=== PATIENT | male | born 1985 | race Caucasian/White ===

== ENCOUNTER → 2021-04-23 | Outpatient (CLI) | payer BC ==
[2021-04-23 11:44] LABS: HEMOGLOBIN 15.9 gm/dl (14.0-17.5); RED BLOOD COUNT 5.41 M/UL (4.20-5.50); WHITE BLOOD COUNT 7.2 K/UL (4.5-11.0)
[2021-04-24 08:15] LABS: A/G RATIO 1.5 (1.2-2.2); ALKALINE PHOSPHATASE, S 124 IU/L (44-121); ALT (SGPT) 54 IU/L (0-44); AST (SGOT) 24 IU/L (0-40); BILIRUBIN, TOTAL 0.3 mg/dL (0.0-1.2); BUN 13 mg/dL (6-20); BUN/CREATININE RATIO 18 (9-20); C-REACTIVE PROTEIN, QUANT <1 mg/L (0-10); CALCIUM, SERUM 9.5 mg/dL (8.7-10.2); CARBON DIOXIDE, TOTAL 22 mmol/L (20-29); CHLORIDE, SERUM 103 mmol/L (96-106); CREATININE, SERUM 0.72 mg/dL (0.76-1.27); EGFR IF AFRICN AM 139 (>59); EGFR IF NONAFRICN AM 120 (>59); GLOBULIN, TOTAL 3.1 g/dL (1.5-4.5); GLUCOSE, SERUM 95 mg/dL (65-99); POTASSIUM, SERUM 4.1 mmol/L (3.5-5.2); PROTEIN, TOTAL, SERUM 7.6 g/dL (6.0-8.5); SODIUM, SERUM 139 mmol/L (134-144)
[2021-04-25 12:16] LABS: E. CHAFFEENSIS (HME) IGG TITER Negative (Neg:<1:64); E. CHAFFEENSIS (HME) IGM TITER Negative (Neg:<1:20)
== END ==
LOC: LAB 10:36
PROVIDERS: Family Medicine
DX: M54.42 Lumbago with sciatica, left side (principal); M54.41 Lumbago with sciatica, right side; G89.29 Other chronic pain; M25.561 Pain in right knee
CPT/HCPCS: 36415; 80053; 82607; 84443; 84550; 85025; 85652; 86140; 86618; 86666; 86757

== ENCOUNTER → 2021-04-23 | Outpatient (CLI) | payer BC | LOC: EMI 04-13 16:00 | DX: M51.17 Intervertebral disc disorders with radiculopathy, lumbosacral region (principal); M43.17 Spondylolisthesis, lumbosacral region; M47.817 Spondylosis without myelopathy or radiculopathy, lumbosacral region; M48.07 Spinal stenosis, lumbosacral region; R93.7 Abnormal findings on diagnostic imaging of other parts of musculoskeletal system | CPT/HCPCS: 72148 ==

== ENCOUNTER → 2021-05-07 | Outpatient (CLI) | payer BC ==
[2021-05-07 13:11] LABS: HEMOGLOBIN 15.1 gm/dl (14.0-17.5); RED BLOOD COUNT 5.38 M/UL (4.20-5.50); WHITE BLOOD COUNT 8.7 K/UL (4.5-11.0)
[2021-05-07 13:45] LABS: BUN/CREATININE RATIO 17 (0-10); GAMMA GLUTAMYL TRANSPEPTIDASE 34 U/L (7-64)
[2021-05-10 05:09] LABS: QUANTIFERON MITOGEN VALUE >10.00 IU/mL (.); QUANTIFERON TB1 AG VALUE 0.02 IU/mL (.); QUANTIFERON-TB GOLD PLUS Negative (Negative)
== END ==
LOC: LAB 12:23
PROVIDERS: Dermatology
DX: L40.0 Psoriasis vulgaris (principal); D64.9 Anemia, unspecified
CPT/HCPCS: 36415; 80053; 82465; 82977; 84478; 85027

== ENCOUNTER → 2021-05-09 | Outpatient (CLI) | payer BC | LOC: MRI 14:46 | DX: R60.0 Localized edema (principal); M25.461 Effusion, right knee; R93.6 Abnormal findings on diagnostic imaging of limbs | CPT/HCPCS: 73720; A9577 ==

== ENCOUNTER → 2021-09-27 | Outpatient (CLI) | payer OTHER ==
[2021-09-27 14:14] LABS: MONONUCLEAR CELLS 8.8 %; POLYMORPHONUCLEAR 91.2 %; RBC (AUTOMATED) 96100 10^6; WBC (AUTOMATED) 136860 10^3
[2021-09-28 10:14] LABS: PROTEIN, BODY FLUID 5.8 g/dL (.)
== END ==
LOC: KOH-I 11:25
PROVIDERS: Nurse Practitioner Family
DX: M25.461 Effusion, right knee (principal)
CPT/HCPCS: 73721; 82945; 84157; 87070; 87205; 89051; 89060

== ENCOUNTER 2021-09-28 12:07 | Emergency (ER) | payer OTHER ==
[2021-09-28 13:45] LABS: HEMOGLOBIN 16.1 gm/dl (14.0-17.5); RED BLOOD COUNT 5.36 M/UL (4.20-5.50); WHITE BLOOD COUNT 10.1 K/UL (4.5-11.0)
[2021-09-28 14:17] LABS: BUN/CREATININE RATIO 16 (0-10)
== END 2021-09-28 13:00 | disposition home or self-care (01) ==
LOC: ER1 12:07
PROVIDERS: Emergency Medicine
DX: M25.461 Effusion, right knee (principal); F17.200 Nicotine dependence, unspecified, uncomplicated; I10 Essential (primary) hypertension; Z87.39 Personal history of other diseases of the musculoskeletal system and connective tissue
CPT/HCPCS: 80053; 81001; 85025; 85652; 86140; 87040; 99284